=== PATIENT | male | born 1940 | race Caucasian/White ===

== ENCOUNTER → 2024-02-24 12:51 | Outpatient (REF) | payer MEDICARE, BC, SELFPAY | LOC: RAD 12:51 | PROVIDERS: ATTENDING PHYSICIAN Surgery; FAMILY PHYSICIAN Family Medicine | DX: R10.31 Right lower quadrant pain (principal) | CPT/HCPCS: 74177; Q9967 ==

== ENCOUNTER → 2024-03-20 10:30 | Outpatient (REF) | payer MEDICARE, BC, SELFPAY | LOC: MRI 3T 10:30 | PROVIDERS: ATTENDING PHYSICIAN Physician Assistant Surgical; FAMILY PHYSICIAN Family Medicine | DX: M89.9 Disorder of bone, unspecified (principal) | CPT/HCPCS: 72197; 73721; A9575 ==

== ENCOUNTER 2024-03-22 06:13 | Day surgery (SDC) | payer MEDICARE, BC, SELFPAY ==
--- NOTE | 2024-02-09 10:03 | CM ---
Addendum entered by Adia Pratt 03/04/24 11:40:
Spoke again with patient. He has obtained a hip kit, shower seat and firm cushion.
Original Note:
Patient is scheduled for an elective R THR on 03/15/24- he is a same day patient. Spoke with patient prior to surgery. Introduced role of Orthopedic Navigator. Patient reports that he lives with his in a three story home. There are three steps to
enter and then patient has an elevator to all other floors. He currently functions independently. He has a cane, rollator, raised toilet seat and rolling walker. He has never had VN services. PCP is [facility].
Discussed orthopedic program and post surgical plans. Reviewed that he will have VN services initially (medicare.gov website and ratings reviewed) and will then start outpatient PT. Patient selects [facility] (face sheet faxed to [facility] to facilitate
confirmation of benefits) for his home care needs and will go to [facility] for outpatient PT.
Patient is in agreement with plan and states that his will be home with him.
Patient will complete online education.
Plan: Orthopedic Navigator will remain available to assist with the care of patient and will reassess discharge needs after surgery.
[2024-02-18 09:24] VITALS: BMI 24.0
[2024-02-18 09:46] LABS: Hematocrit 37.9 % (39.0-52.0); Hemoglobin 13.3 g/dL (13.0-18.0); Mean Corp Hgb Conc. 35.1 g/dL (33.0-37.0); Mean Corpuscular Hgb 31.2 pg (27.0-31.0); Mean Platelet Volume 9.4 fL (7.4-10.4); Platelet Count 189 10^3/uL (130-400); Red Blood Cell Count 4.26 10^6/uL (4.70-6.10); Red Cell Dist. Width 13.1 % (11.5-14.5); White Blood Cell Count 6.3 10^3/uL (4.8-10.8)
[2024-02-18 12:17] LABS: ALT (SGPT) 15 U/L (0-50); AST (SGOT) 28 U/L (17-59); Albumin 3.7 g/dl (3.5-5.0); Alkaline Phosphatase 90 U/L (38-126); Blood Urea Nitrogen 23 mg/dl (9-20); Calcium 9.2 mg/dl (8.4-10.2); Carbon Dioxide 24 mmol/L (22-30); Chloride 107 mmol/L (98-107); Estimated Creatinine Clearance 48 ml/min; Glucose 91 mg/dl (70-99); Potassium 4.4 mmol/L (3.5-5.1); Sodium 139 mmol/L (135-145); Total Bilirubin 0.7 mg/dl (0.2-1.3); Total Protein 6.6 g/dl (6.3-8.2); eGFR > 60.00
[2024-02-18 13:23] LABS: Glycohemoglobin (HgbA1c) 5.8 % (4.0-5.6)
[2024-03-16 11:56] VITALS: BMI 24.0
--- NOTE | 2024-03-18 11:45 | PTCARENOTE ---
Abnormal abdominal/pelvis CT on 02/24/24; Kassidy at ' office was made aware.
[2024-03-22] VITALS (17 sets, daily range): BP systolic 100–156; BP diastolic 57–77; PULSE 40; O2SAT 98; BMI 23.7
[2024-03-22] MEDS: CELEBREX 200 MG PO (07:07)
[2024-03-22] MEDS: TYLENOL 650 MG PO (07:07)
[2024-03-22] MEDS: NORMOSOL-R 1000 IV (07:14)
--- NOTE | 2024-03-22 11:53 | CM ---
Patient had planned R THR today. Met with patient and his friend at bedside to review discharge plans. Patient will be returning home today with services through [facility]. On , 03/25, patient will start outpatient PT at [facility]. Reviewed MD follow
up in two weeks and patient is aware of need to schedule appointment.
Patient has his rolling walker and cane here with him.
PT and [facility] were kept updated as to progress and discharge plans.
[2024-03-22] MEDS: ROXICODONE 5 MG PO (12:06)
[2024-03-22] MEDS: ANCEF 5 IV (12:56)
== END 2024-03-22 14:05 | disposition home or self-care (01) ==
LOC: SDS 06:13
PROVIDERS: ATTENDING PHYSICIAN Specialist; FAMILY PHYSICIAN Family Medicine; OTHER PHYSICIAN Internal Medicine Cardiovascular Disease
DX: M16.11 Unilateral primary osteoarthritis, right hip (principal)
CPT/HCPCS: 27130; C1713; C1776; 36415; 73502; 80053; 83036; 85027; 87070; 97116; 97161

== ENCOUNTER → 2024-05-24 14:06 | Outpatient (REF) | payer MEDICARE, BC, SELFPAY ==
[2024-05-24 15:08] LABS: Blood Urea Nitrogen 19 mg/dl (9-20)
== END ==
LOC: REG 14:06
PROVIDERS: ATTENDING PHYSICIAN Surgery
DX: R10.31 Right lower quadrant pain (principal); Z01.812 Encounter for preprocedural laboratory examination
CPT/HCPCS: 36415; 82565; 84520

== ENCOUNTER → 2024-05-25 08:37 | Outpatient (REF) | payer MEDICARE, BC, SELFPAY | LOC: HWRAD 08:37 | PROVIDERS: ATTENDING PHYSICIAN Surgery; FAMILY PHYSICIAN Family Medicine | DX: R10.31 Right lower quadrant pain (principal) | CPT/HCPCS: 74177; Q9967 ==

== ENCOUNTER → 2024-08-12 09:01 | Outpatient (REF) | payer MEDICARE, BC, SELFPAY | LOC: HWRAD 09:01 | PROVIDERS: ATTENDING PHYSICIAN Family Medicine | DX: M25.532 Pain in left wrist (principal) | CPT/HCPCS: 73110 ==

== ENCOUNTER → 2025-07-26 08:37 | Outpatient (REF) | payer MEDICARE, BC, SELFPAY | LOC: RCS 08:37 | PROVIDERS: ATTENDING PHYSICIAN Nurse Practitioner; FAMILY PHYSICIAN Family Medicine | DX: R42 Dizziness and giddiness (principal); R06.02 Shortness of breath | CPT/HCPCS: 93306 ==